=== PATIENT | female | born 1970 | race Caucasian/White ===

== ENCOUNTER 2016-11-25 20:57 | Emergency (ER) | payer OTHER ==
[~2016-11-25] VITALS: Ht 147.3 cm; Wt 71.0 kg
[~2016-11-25 20:57] MED LIST: AMO500 PO; AZIT250T94 PO; BACTDS PO; HYDR-3498 PO; MAG-19 PO; NAPR-260 PO; OMEP20CA16 PO; ONDA4TAB8 PO; RANI150T9 PO
[2016-11-25 21:40] VITALS: Ht 147.3 cm; Wt 71.0 kg
--- NOTE | 2016-11-25 22:05 | ERA ---
ER Documentation Chief Complaint Date/Time DATE: 11/25/16 TIME: 22:04 Chief Complaint chest/back pain x 2 days HPI The patient is a 46-year-old female, presenting to the ER because of sternal chest pain radiating to the back intermittently for the last 3 days, 06/11, the pain is worse with palpation. She denies similar symptoms previously. She denies fever, chills, neck pain, chest pain or exertional vomiting or diaphoresis. She denies abdominal pain, vomiting, dysuria, diarrhea. She does not smoke, drinks socially Past medical history: Dyslipidemia, GERD, gastritis Past surgical history: , tubal ligation ROS All systems reviewed and are negative except as per history of present illness. Medications Home Meds Active Scripts Ibuprofen* (Motrin*) 600 Mg Tab, 600 MG PO Q6H Y for PAIN AND OR ELEVATED TEMP, #20 TAB Prov:ZOILA KIM MD 11/26/16 Reported Medications Omeprazole* (Omeprazole*) 20 Mg Capsule., 20 MG PO DAILY, #30 CAP 11/25/16 Discontinued Scripts Amoxicillin* (Amoxicillin*) 500 Mg Cap, 500 MG PO BID for 7 Days, CAP Prov:ALEENA TORRES PA-C 08/31/16 Omeprazole* (Omeprazole*) 20 Mg Capsule., 20 MG PO BID, #60 Prov:MONIQUE SINGER NP 07/12/16 Magaldrate/Simethicone* (Mylanta*) 355 Ml Susp, 30 ML PO QID Y for GASTROINTESTINAL UPSET, #1 BOTTLE Prov:MONIQUE SINGER NP 07/12/16 Hydrocodone Bit-Acetaminophen* ([place]*) 5-325 Mg Tab, 1 TAB PO Q6 Y for PAIN, # 7 TAB Prov:JAZMINE FUNES PA-C 03/26/16 Naproxen* (Naprosyn*) 500 Mg Tablet, 500 MG PO BID Y for PAIN AND/OR INFLAMMATION, #30 TAB Prov:JAZMINE FUNES PA-C 03/26/16 Azithromycin* (Zithromax*) 250 Mg Tablet, 250 MG PO .CurryPACK DIRECTED, #6 TAB TAKE 500 MG (2 TABS) THE FIRST DAY THEN 250 MG (1 TAB) DAYS 2-5 Prov:AMELIA ZAVALETA MD 10/30/15 Ranitidine Hcl* (Zantac*) 150 Mg Tablet, 150 MG PO BID for EPIGASTRIC PAIN, #20 TAB Prov:MY HERRERA DO 06/27/15 Sulfamethoxazole-Trimethoprim* (Bactrim* DS) 800-160 Mg Tab, 1 TAB PO BID, #6 TAB Prov:MY HERRERA DO 06/27/15 Ondansetron Hcl* (Zofran*) 4 Mg Tablet, 4 MG PO Q8H Y for NAUSEA AND/OR VOMITING , #10 TAB Prov:MY HERRERA DO 06/27/15 Allergies Allergies: Coded Allergies: No Known Allergy (Unverified , 11/25/16) PMhx/Soc History of Surgery: Yes (C section) Anesthesia Reaction: No Hx Neurological Disorder: No Hx Respiratory Disorders: No Hx Cardiac Disorders: Yes (Hyperlipidemia, GERD) Hx Psychiatric Problems: No Hx Miscellaneous Medical Probl: No Hx Alcohol Use: No Hx Substance Use: No Hx Tobacco Use: No Physical Exam Vitals Vital Signs Date Time Temp Pulse Resp B/P Pulse Ox O2 Delivery O2 Flow Rate FiO2 11/26/16 02:34 75 25 120/84 100 Room Air 11/25/16 21:40 98.5 76 20 112/60 98 Physical Exam Const: No acute distress. Head: Atraumatic. Eyes: Normal Conjunctiva. ENT: Normal External Ears, Nose and Mouth. Neck: Full range of motion. No meningismus. Resp: Clear to auscultation bilaterally. Cardio: Regular rate and rhythm, no murmurs. Left chest wall tenderness with palpation Abd: Soft, non distended, normal bowel sounds, non tender. Skin: No petechiae or rashes. Back: No midline or flank tenderness. Ext: No cyanosis, or edema. Neur: Awake and alert. No focal deficit Psych: Normal Mood and Affect. Result Diagram: 11/25/16224711/25/162247 Results 24 hrs Laboratory Tests Test 11/25/16 22:48 11/26/16 01:30 Activated Partial Thromboplast Time 31.9Sec Alanine Aminotransferase (ALT/SGPT) 36IU/L Albumin 4.3g/dl Albumin/Globulin Ratio 1.16 Alkaline Phosphatase 96IU/L Anion Gap 15 Aspartate Amino Transf (AST/SGOT) 25IU/L Basophils # 0.010^3/ul Basophils % 0.4% Blood Urea Nitrogen 10mg/dl Calcium Level 9.4mg/dl Carbon Dioxide Level 29mmol/L Chloride Level 99mmol/L Creatinine 0.56mg/dl Direct Bilirubin 0.00mg/dl Eosinophils # 0.310^3/ul Eosinophils % 3.2% Globulin 3.70g/dl Glucose Level 122mg/dl Hematocrit 40.4% Hemoglobin 12.8g/dl INR International Normalized Ratio 0.88 Indirect Bilirubin 0.0mg/dl Lipase 231U/L Lymphocytes # 3.510^3/ul Lymphocytes % 34.1% Mean Corpuscular Hemoglobin 25.6pg Mean Corpuscular Hemoglobin Concent 31.7g/dl Mean Corpuscular Volume 80.8fl Mean Platelet Volume 9.8fl Monocytes # 0.610^3/ul Monocytes % 6.3% Neutrophils # 5.710^3/ul Neutrophils % 55.6% Nucleated Red Blood Cells # 0.010^3/ul Nucleated Red Blood Cells % 0.0/100WBC Platelet Count 53672^3/UL Potassium Level 4.2mmol/L Prothrombin Time 11.9Sec Prothrombin Time Ratio 0.9 Red Blood Count 5.0010^6/ul Red Cell Distribution Width 14.2% Sodium Level 139mmol/L Total Bilirubin 0.0mg/dl Total Protein 8.0g/dl Troponin I 0.012ng/ml < 0.012ng/ml White Blood Count 10.210^3/ul Current Medications Medications (Trade) Dose Ordered Sig/Nargis Route PRN Reason Start Time Stop Time Status Last Admin Dose Admin Pantoprazole 40 mg 40 mg ONCE ONCE IV 11/25/16 22:30 11/25/16 22:31 DC 11/25/16 22:50 Sodium Chloride (NS) 1,000 ml @ 1,000 mls/hr Q1H ONCE IV 11/25/16 22:30 11/25/16 23:29 DC 11/25/16 22:50 IV Flush 10 ml 10 ml STK-MED ONCE .ROUTE 11/25/16 23:48 11/25/16 23:49 DC 11/26/16 00:06 Sodium Chloride 100 ml @ ud STK-MED ONCE .ROUTE 11/25/16 23:48 11/25/16 23:49 DC 11/26/16 00:06 Iohexol (Omnipaque) 100 ml @ [facility] ONCE .ROUTE 11/25/16 23:48 11/25/16 23:49 DC 11/26/16 00:06 Procedures/MDM EKG: Read by emergency physician at 9:42 PM Rate/Rhythm: Normal Sinus Rhythm 74 beats/min QRS, ST, T-waves: No ST elevation, no T inversion Impression: Normal EKG EKG: Read by emergency physician at 11:47 PM Rate/Rhythm: Normal Sinus Rhythm beats/min QRS, ST, T-waves: No ST elevation, no T inversion Impression: EKG [place] [id number] Radiology Main Line: [phone] DIAGNOSTIC IMAGING REPORT Patient: SUJEY BAKER : 1970 Age: 46 Sex: F MR #: [id number] DOS: 11/25/16 2215 Ordering MD: ZOILA KIM MD Location: E/R Room/Bed: PROCEDURE: CTA Chest. CLINICAL INDICATION: Chest pain, rule out aortic dissection. TECHNIQUE: Direct spiral 1.25 mm axial sections were obtained from the thoracic inlet to the upper abdomen with the use of 99 cc of Omnipaque 350 nonionic intravenous contrast material. Axial MIP, coronal, and sagittal reformations were obtained. The images were reviewed on a PACS workstation. CTDIvol: 51.64, 12.70 mGy. DLP: 491.67 mGy-cm. One or more of the following dose reduction techniques were used: - Automated exposure control. - Adjustment of the mA and/or kV according to patient size. - Use of iterative reconstruction technique. COMPARISON: None. FINDINGS: There is no pulmonary embolism. The main pulmonary artery is normal in caliber. There is no aortic aneurysm. The heart is normal in size. There is no pericardial effusion. There are mild dependent atelectatic changes in the lungs. No pulmonary edema or consolidation is identified. There is no pleural effusion or pneumothorax No suspicious thyroid lesion is seen. There is no thoracic lymphadenopathy. The trachea and mainstem bronchi are patent. Limited evaluation of the upper abdomen is unremarkable. There is no suspicious osseous lesion. IMPRESSION: 1. No aortic aneurysm or dissection. 2. No pulmonary embolism. 3. No pulmonary edema or consolidation. RPTAT: HTAR .Marvin Lunsford MD, MD Date Time Electronically viewed and signed by .Marvin Lunsford MD, MD on 11/26/2016 00:26 .R/ CC: ZOILA KIM MD [place] [id number] Radiology Main Line: [phone] DIAGNOSTIC IMAGING REPORT Patient: SUJEY BAKER : 1970 Age: 46 Sex: F MR #: [id number] DOS: 11/25/16 [facility] [place] [facility] Ordering MD: ZOILA KIM MD Location: E/R Room/Bed: PROCEDURE: CHEST - 1 VIEW CLINICAL INDICATION: 46-year-old female with chest pain. TECHNIQUE: A single frontal AP semi-erect view of the chest was performed portably. The images were reviewed on a PACS workstation. COMPARISON: CT abdomen/pelvis December 11, 2014. FINDINGS: The cardiomediastinal silhouette is within normal limits. There is a shallow inspiration. There is mild bibasilar subsegmental atelectasis. There is no evidence for an infiltrate. There is no evidence for congestive heart failure. There is no evidence for pneumothorax. The osseous structures are intact. IMPRESSION: Shallow inspiration with mild bibasilar subsegmental atelectasis. .Wilbert Hill MD, MD Date Time Electronically viewed and signed by .Wilbert Hill MD, MD on 11/25/2016 23:10 .M/ CC: ZOILA KIM MD MEDICAL MAKING DECISION: The patient is a 46-year-old female, presenting with acute chest pain of unclear etiology. She was treated with Protonix 40 mg IV and 1 L normal saline for clinical dehydration with good response. Tthe differential diagnoses considered include but are not limited to acute coronary syndrome, acute myocardial infarction, pericarditis, pulmonary embolism, aortic dissection, pneumonia, pleural effusion, pneumothorax, GERD, chest wall pain. Departure Diagnosis: Primary Impression: Chest pain Condition: Good Comments She was discharged with Motrin The patient presents with chest pain and I considered pulmonary embolism, aortic dissection, pneumothorax among other diagnoses. Evaluation for acute coronary syndrome was performed. The HEART score (www.mdcalc.com) was utilized for risk stratification and found to be <= 3. Repeat EKG and troponin @ 3 hours were unchanged. Based on this evaluation the patients risk of major adverse cardiac events is <1%. Shared decision making occurred with patient and the decision has been made to discharge the patient for outpatient evaluation and functional study within 72 hours. ZOILA KIM MD Nov 25, 2016 22:05
[2016-11-25] MEDS ORDERED: OMEP20CA16 PO (22:24)
[2016-11-25] MEDS ORDERED: SOD CHLORIDE 0.9% 1,000 ML IV ONE (22:30)
[2016-11-25] MEDS ORDERED: PANTOPRAZOLE 40 MG INJ IV ONE (22:30)
[2016-11-25 23:04] LABS: ADD SCAN DIFF NO
[2016-11-25 23:09] LABS: BASOPHILS % 0.4 % (0.0-2.0); EOSINOPHILS # 0.3 10^3/ul (0.0-0.5); EOSINOPHILS % 3.2 % (0.0-7.0); HEMATOCRIT 40.4 % (37.0-47.0); HEMOGLOBIN 12.8 g/dl (12.0-16.0); LYMPHOCYTES # 3.5 10^3/ul (0.8-2.9); LYMPHOCYTES % 34.1 % (15.0-51.0); MEAN CORPUSCULAR HEMOGLOBIN 25.6 pg (29.0-33.0); MEAN CORPUSCULAR HGB CONC 31.7 g/dl (32.0-37.0); MEAN CORPUSCULAR VOLUME 80.8 fl (82.0-101.0); MEAN PLATELET VOLUME 9.8 fl (7.4-10.4); MONOCYTE # 0.6 10^3/ul (0.3-0.9); MONOCYTES % 6.3 % (0.0-11.0); NEUTROPHIL # 5.7 10^3/ul (1.6-7.5); NEUTROPHILS % 55.6 % (39.0-77.0); PLATELET COUNT 313 10^3/UL (140-415); RED CELL DISTRIBUTION WIDTH 14.2 % (11.5-14.5); WHITE BLOOD COUNT 10.2 10^3/ul (4.8-10.8)
--- NOTE | 2016-11-25 23:11 | RADRPT ---
PROCEDURE: CHEST - 1 VIEW CLINICAL INDICATION: 46-year-old female with chest pain. TECHNIQUE: A single frontal AP semi-erect view of the chest was performed portably. The images we re reviewed on a PACS workstation. COMPARISON: CT abdomen/pelvis December 11, 2014. FINDINGS: The cardiomediastinal silhouette is within normal limits. There is a shallow inspiration. There is mild bibasilar subsegmental atelectasis. There is no evidence for an infiltrate. There is no evid ence for congestive heart failure. There is no evidence for pneumothorax. The osseous structures are intact. IMPRESSION: Shallow inspiration with mild bibasilar subsegmental atelectasis. .Wilbert Hill MD, MD Date Time Electronically viewed and signed by .Wilbert Hill MD, on 11/25/2016 23:10 ./
[2016-11-25 23:17] LABS: ALBUMIN 4.3 g/dl (3.3-4.9)
[2016-11-25 23:18] LABS: INR 0.88; POTASSIUM 4.2 mmol/L (3.5-5.1); PROTIME 11.9 Sec (12.2-14.2); PT RATIO 0.9
[2016-11-25 23:20] LABS: CREATININE 0.56 mg/dl (0.44-1.00); PARTIAL THROMBOPLASTIN TIME 31.9 Sec (25.0-35.0)
[2016-11-25 23:21] LABS: CALCIUM 9.4 mg/dl (8.4-10.2)
[2016-11-25 23:32] LABS: TROPONIN-I 0.012 ng/ml (0.00-0.12)
[2016-11-25 23:38] LABS: ALBUMIN/GLOBULIN RATIO 1.16
[2016-11-25] MEDS ORDERED: SOD CHLORIDE 0.9% 100 ML ONE (23:48)
[2016-11-25] MEDS ORDERED: IOHEXOL 100 ML ONE (23:48)
--- NOTE | 2016-11-26 00:27 | RADRPT ---
PROCEDURE: CTA Chest. CLINICAL INDICATION: Chest pain, rule out aortic dissection. TECHNIQUE: Direct spiral 1.25 mm axial sections were obtained from the thoracic inlet to the upper abdomen with the use of 99 cc of Omnipaque 350 nonionic intravenous contrast material. Axial MIP, c oronal, and sagittal reformations were obtained. The images were reviewed on a PACS workstation. CTD Ivol: 51.64, 12.70 mGy. DLP: 491.67 mGy-cm. One or more of the following dose reduction techniques were used: - Automated exposure control. - Adjustment of the mA and/or kV according to patient size. - Use of iterative reconstruction technique. COMPARISON: None. FINDINGS: There is no pulmonary embolism. The main pulmonary artery is normal in caliber. There is no aortic aneurysm. The heart is normal in size. There is no pericardial effusion. There are mild dependent atelectatic changes in the lungs. No pulmonary edema or consolidation is id entified. There is no pleural effusion or pneumothorax No suspicious thyroid lesion is seen. There is no thoracic lymphadenopathy. The trachea and mainste m bronchi are patent. Limited evaluation of the upper abdomen is unremarkable. There is no suspicious osseous lesion. IMPRESSION: 1. No aortic aneurysm or dissection. 2. No pulmonary embolism. 3. No pulmonary edema or consolidation. RPTAT: HTAR .Marvin Lunsford MD, Date Time Electronically viewed and signed by .Marivn Lunsford MD, on 11/26/2016 00:26 .R/
[2016-11-26] MEDS ORDERED: IBUP-1542 PO (02:26)
[2016-11-26 02:34] VITALS: BP 120/84; PULSE 75; RESP 25
== END 2016-11-26 02:34 | disposition home or self-care (01) ==
LOC: E/R 20:57
DX: R07.89 Other chest pain (principal)
CPT/HCPCS: 36415; 71010; 71275; 80053; 83690; 84484; 85025; 85610; 85730; 96374; C9113; J7030; Q9967; Z7502; Z7610; 93005

== ENCOUNTER 2016-11-28 16:11 | Emergency (ER) | payer OTHER ==
[~2016-11-28] VITALS: Wt 77.0 kg
[~2016-11-28 16:11] MED LIST changes: -AMO500 PO; -AZIT250T94 PO; -BACTDS PO; -HYDR-3498 PO; +IBUP-1542 PO; -MAG-19 PO; -NAPR-260 PO; -ONDA4TAB8 PO; -RANI150T9 PO
[2016-11-28] MEDS ORDERED: FAMOTIDINE 20 MG TAB PO STA (18:45)
[2016-11-28] MEDS ORDERED: LIDOCAINE/MYLANTA 40 ML BTL PO STA (18:45)
[2016-11-28 19:26] LABS: ADD SCAN DIFF NO
[2016-11-28 19:30] LABS: BASOPHIL # 0.1 10^3/ul (0.0-0.1); BASOPHILS % 0.6 % (0.0-2.0); EOSINOPHILS # 0.3 10^3/ul (0.0-0.5); EOSINOPHILS % 2.9 % (0.0-7.0); HEMOGLOBIN 12.8 g/dl (12.0-16.0); LYMPHOCYTES # 3.3 10^3/ul (0.8-2.9); LYMPHOCYTES % 32.6 % (15.0-51.0); MEAN CORPUSCULAR HEMOGLOBIN 25.9 pg (29.0-33.0); MEAN PLATELET VOLUME 9.9 fl (7.4-10.4); MONOCYTE # 0.6 10^3/ul (0.3-0.9); NEUTROPHIL # 5.7 10^3/ul (1.6-7.5); NEUTROPHILS % 57.5 % (39.0-77.0); PLATELET COUNT 320 10^3/UL (140-415); RED BLOOD COUNT 4.94 10^6/ul (4.20-5.40); RED CELL DISTRIBUTION WIDTH 14.2 % (11.5-14.5)
[2016-11-28 19:40] LABS: ALBUMIN 4.3 g/dl (3.3-4.9); POTASSIUM 4.4 mmol/L (3.5-5.1)
[2016-11-28 19:42] LABS: BILIRUBIN,INDIRECT 0.2 mg/dl (0-1.1); BILIRUBIN,TOTAL 0.2 mg/dl (0.2-1.3); CREATININE 0.61 mg/dl (0.44-1.00)
[2016-11-28 19:43] LABS: ALBUMIN/GLOBULIN RATIO 1.3; CALCIUM 9.8 mg/dl (8.4-10.2); TOTAL PROTEIN 7.6 g/dl (6.1-8.1)
[2016-11-28 19:55] LABS: URINE BLOOD (Dip) POC Trace-intact (NEGATIVE)
--- NOTE | 2016-11-28 20:00 | RADRPT ---
PROCEDURE: US Abdomen Right Upper Quadrant. CLINICAL INDICATION: Abdominal pain TECHNIQUE: Multiple real-time longitudinal and transverse images were acquired of the patient's [facility] upper quadrant abdomen utilizing a curved array transducer. COMPARISON: CT scan of the abdomen and pelvis done 12/11/[address] was unremarkable except for a bladder diverticulum. FINDINGS: Liver: The liver is mildly enlarged with the sagittal diameter right lobe measuring 16.9 cm. There is mild diffusely increased echotexture with no focal lesion. There is normal directional flow in t he main portal vein. Gallbladder: Appears unremarkable and no stones are identified. There is no pericholecystic fluid. Bile ducts: There is no significant intra or extrahepatic bile duct dilatation. No choledocholiths a re seen within the visualized portions. The common bile duct measures 3.3 mm in cross diameter. Pancreas: The pancreatic head is largely obscured by bowel gas as is the distal tail. The visualize d portions are unremarkable. Right adrenal : No mass is identified. Right kidney: Normal in echotexture andl in size. The right kidney measures 10.3 cm in length. No ma ss, pathological calcification, or hydronephrosis is evident. Peritoneum: There is no free intraperitoneal fluid IMPRESSION: 1. Mild hepatomegaly with mildly diffusely increased echotexture compatible with fatty infiltration . No focal lesion is identified. 2. Pleural unremarkable gallbladder with no gallstones or gallbladder wall thickening. There is no bile duct dilatation. 3. The pancreas is partially obscured by bowel gas. 4. Normal-appearing right kidney without hydronephrosis. Physician Fidelina Date Time Electronically viewed and signed by Physician Fidelina on 11/28/2016 19:59 /
--- NOTE | 2016-11-28 20:09 | ERD ---
ER Documentation Chief Complaint Date/Time DATE: 11/28/16 TIME: 20:07 Chief Complaint ABDOMINAL PAIN WITH NAUSEA AND VOMITING SINCE 3 DAYS. NO DIARRHEA OR DYSURA HPI Patient is a 46-year-old female who presents to the ED with epigastric and right upper quadrant pain since yesterday. She states that she had a hot dog yesterday and developed pain. She does have a history of GERD and gastritis. She does not take any medication for her symptoms. She states that the pain is a burning sensation and she has a lot of gas and acid feeling in her throat. She denies nausea, vomiting or diarrhea. She denies chest pain, shortness of breath or difficulty breathing. She states that she was here 3 days ago and had a cardiac workup which was unremarkable. She denies diarrhea, fever, chills. She states that her last bowel movement was this morning. Denies history of constipation. ROS All systems reviewed and are negative except as per history of present illness. Medications Home Meds Active Scripts Nitrofurantoin Monohyd Macrocr* (Macrobid*) 100 Mg Capsr, 100 MG PO BID for 7 Days, CAP Prov:MARY LEGGETT PA-C 11/28/16 Famotidine* (Pepcid*) 20 Mg Tablet, 20 MG PO BID for 30 Days, TAB Prov:MARY LEGGETT PA-C 11/28/16 Ibuprofen* (Motrin*) 600 Mg Tab, 600 MG PO Q6H Y for PAIN AND OR ELEVATED TEMP, #20 TAB Prov:ZOILA KIM MD 11/26/16 Reported Medications Omeprazole* (Omeprazole*) 20 Mg Capsule., 20 MG PO DAILY, #30 CAP 11/25/16 Discontinued Scripts Amoxicillin* (Amoxicillin*) 500 Mg Cap, 500 MG PO BID for 7 Days, CAP Prov:ALEENA TORRES PA-C 08/31/16 Omeprazole* (Omeprazole*) 20 Mg Capsule., 20 MG PO BID, #60 Prov:MONIQUE SINGER NP 07/12/16 Magaldrate/Simethicone* (Mylanta*) 355 Ml Susp, 30 ML PO QID Y for GASTROINTESTINAL UPSET, #1 BOTTLE Prov:MONIQUE SINGER NP 07/12/16 Hydrocodone Bit-Acetaminophen* ([place]om*) 5-325 Mg Tab, 1 TAB PO Q6 Y for PAIN, # 7 TAB Prov:JAZMINE FUNES PA-C 03/26/16 Naproxen* (Naprosyn*) 500 Mg Tablet, 500 MG PO BID Y for PAIN AND/OR INFLAMMATION, #30 TAB Prov:JAZMINE FUNES PA-C 03/26/16 Azithromycin* (Zithromax*) 250 Mg Tablet, 250 MG PO .CurryPACK DIRECTED, #6 TAB TAKE 500 MG (2 TABS) THE FIRST DAY THEN 250 MG (1 TAB) DAYS 2-5 Prov:AMELIA ZAVALETA MD 10/30/15 Ranitidine Hcl* (Zantac*) 150 Mg Tablet, 150 MG PO BID for EPIGASTRIC PAIN, #20 TAB Prov:MY HERRERA DO 06/27/15 Sulfamethoxazole-Trimethoprim* (Bactrim* DS) 800-160 Mg Tab, 1 TAB PO BID, #6 TAB Prov:MY HERRERA DO 06/27/15 Ondansetron Hcl* (Zofran*) 4 Mg Tablet, 4 MG PO Q8H Y for NAUSEA AND/OR VOMITING , #10 TAB Prov:MY HERRERA DO 06/27/15 Allergies Allergies: Coded Allergies: No Known Allergy (Unverified , 11/25/16) PMhx/Soc History of Surgery: Yes (C section) Anesthesia Reaction: No Hx Neurological Disorder: No Hx Respiratory Disorders: No Hx Cardiac Disorders: Yes (Hyperlipidemia, GERD) Hx Psychiatric Problems: No Hx Miscellaneous Medical Probl: No Hx Alcohol Use: Yes Hx Substance Use: No Hx Tobacco Use: No Smoking Status: Never smoker FmHx Family History: No coronary disease, No diabetes, No other Physical Exam Vitals Vital Signs Date Time Temp Pulse Resp B/P Pulse Ox O2 Delivery O2 Flow Rate FiO2 11/28/16 21:20 98.1 71 18 120/60 95 Room Air 11/28/16 16:12 98.9 86 20 110/56 99 Physical Exam GENERAL: Well-developed, well-nourished female. Appears in no acute distress. LUNG: Clear to auscultation bilaterally. No rhonchi, wheezing, rales or coarse breath sounds. HEART: Regular rate and rhythm. No murmurs, rubs or gallops. ABDOMEN: No scars, ecchymosis or rashes noted. Soft, nontender, and nondistended. Positive bowel sounds in all four quadrants. No rebound tenderness , no guarding. (-) McBurneys point tenderness. No CVA tenderness. tenderness in epigastric and right upper quadrant. NEUROLOGIC: Alert and oriented. Moving all four extremities. 5/5 strength in all extremities. Normal speech. Steady gait. SKIN: Normal color. Warm and dry. No rashes or lesions. Capillary refill < 2 seconds Result Diagram: 11/28/16184911/28/161849 Results 24 hrs Laboratory Tests Test 11/28/16 18:50 11/28/16 19:58 11/28/16 20:36 Alanine Aminotransferase (ALT/SGPT) 25IU/L Albumin 4.3g/dl Albumin/Globulin Ratio 1.30 Alkaline Phosphatase 85IU/L Anion Gap 17 Aspartate Amino Transf (AST/SGOT) 24IU/L Basophils # 0.110^3/ul Basophils % 0.6% Blood Urea Nitrogen 12mg/dl Calcium Level 9.8mg/dl Carbon Dioxide Level 28mmol/L Chloride Level 99mmol/L Creatinine 0.61mg/dl Direct Bilirubin 0.00mg/dl Eosinophils # 0.310^3/ul Eosinophils % 2.9% Globulin 3.30g/dl Glucose Level 115mg/dl Hematocrit 40.0% Hemoglobin 12.8g/dl Indirect Bilirubin 0.2mg/dl Lipase 231U/L Lymphocytes # 3.310^3/ul Lymphocytes % 32.6% Mean Corpuscular Hemoglobin 25.9pg Mean Corpuscular Hemoglobin Concent 32.0g/dl Mean Corpuscular Volume 81.0fl Mean Platelet Volume 9.9fl Monocytes # 0.610^3/ul Monocytes % 6.0% Neutrophils # 5.710^3/ul Neutrophils % 57.5% Nucleated Red Blood Cells # 0.010^3/ul Nucleated Red Blood Cells % 0.0/100WBC Platelet Count 59627^3/UL Potassium Level 4.4mmol/L Red Blood Count 4.9410^6/ul Red Cell Distribution Width 14.2% Sodium Level 140mmol/L Total Bilirubin 0.2mg/dl Total Protein 7.6g/dl White Blood Count 10.010^3/ul Bedside Urine Blood Trace-intact Bedside Urine Glucose (UA) Negative Bedside Urine Ketones (LAB) Negative Bedside Urine Leukocyte Esterase (L Trace Bedside Urine Nitrite (LAB) Positive Bedside Urine Protein (LAB) Negative Bedside Urine pH (LAB) 6.0 Urine Bacteria MANY Urine Bilirubin NEGATIVE Urine Clarity CLEAR Urine Color LT. YELLOW Urine Glucose NEGATIVE% Urine Hemoglobin NEGATIVE Urine Ketones NEGATIVE Urine Leukocyte Esterase TRACE Urine Microscopic RBC 0-2/HPF Urine Microscopic WBC 2-5/HPF Urine Nitrite POSITIVE Urine Specific [place] 1.020 Urine Squamous Epithelial Cells RARE Urine Total Protein NEGATIVE Urine Urobilinogen 0.2 E.U./dL Urine pH 6.0 Current Medications Medications (Trade) Dose Ordered Sig/Nargis Route PRN Reason Start Time Stop Time Status Last Admin Dose Admin Famotidine (Pepcid) 20 mg ONCE STAT PO 11/28/16 18:45 11/28/16 18:49 DC 11/28/16 18:56 Miscellaneous Medication (Gi Cocktail (2)) 40 ml ONCE STAT PO 11/28/16 18:45 11/28/16 18:49 DC 11/28/16 18:57 Procedures/MDM ER COURSE: I kept the patient and/or family informed of laboratory and diagnostic imaging results throughout the emergency room course. EKG, MONITORS, & DIAGNOSTIC IMAGING: [place] [id number] Radiology Main Line: [phone] DIAGNOSTIC IMAGING REPORT Patient: SUJEY BAKER : 1970 Age: 46 Sex: F MR #: [id number] DOS: 11/28/16 1845 Ordering MD: MARY LEGGETT PA-C Location: FTE Room/Bed: PROCEDURE: US Abdomen Right Upper Quadrant. CLINICAL INDICATION: Abdominal pain TECHNIQUE: Multiple real-time longitudinal and transverse images were acquired of the patient's right upper quadrant abdomen utilizing a curved array transducer. COMPARISON: CT scan of the abdomen and pelvis done 12/11/[address] was unremarkable except for a bladder diverticulum. FINDINGS: Liver: The liver is mildly enlarged with the sagittal diameter right lobe measuring 16.9 cm. There is mild diffusely increased echotexture with no focal lesion. There is normal directional flow in the main portal vein. Gallbladder: Appears unremarkable and no stones are identified. There is no pericholecystic fluid. Bile ducts: There is no significant intra or extrahepatic bile duct dilatation. No choledocholiths are seen within the visualized portions. The common bile duct measures 3.3 mm in cross diameter. Pancreas: The pancreatic head is largely obscured by bowel gas as is the distal tail. The visualized portions are unremarkable. Right adrenal : No mass is identified. Right kidney: Normal in echotexture andl in size. The right kidney measures 10.3 cm in length. No mass, pathological calcification, or hydronephrosis is evident. Peritoneum: There is no free intraperitoneal fluid IMPRESSION: 1. Mild hepatomegaly with mildly diffusely increased echotexture compatible with fatty infiltration. No focal lesion is identified. 2. Pleural unremarkable gallbladder with no gallstones or gallbladder wall thickening. There is no bile duct dilatation. 3. The pancreas is partially obscured by bowel gas. 4. Normal-appearing right kidney without hydronephrosis. Physician Fidelina Date Time Electronically viewed and signed by Physician Fidelina on 11/28/2016 19:59 RH/ CC: MARY LEGGETT PA-C MEDICATIONS: GI cocktail, Pepcid, Zofran. Tolerated medication well and seen improvement in symptoms. LAB INTERPRETATION: CBC showed no evidence of systemic infection or severe anemia. CMP showed no evidence of electrolyte abnormalities, severe acidosis, alkalosis, renal failure , or liver disease. Lipase showed no evidence of acute pancreatitis. UA showed evidence of trace leukocytes, positive nitrates and no hematuria. Urine test was negative. MEDICAL DECISION MAKING: This is a 46-year-old who presents with epigastric pain. Vital signs were reviewed. Patient is afebrile. Patient is not hypoxic. Patient is not toxic or ill-appearing. Patient likely has GERD versus gastritis. Low suspicion for ACS , AAA, perforated ulcer, bowel obstruction, cholecystitis, choledocholithiasis, cholangitis, pancreatitis, hepatic abscess, appendicitis, diverticulitis, gastroenteritis, hepatitis, peptic ulcer disease, HELLP syndrome. Patient also has a UTI, positive nitrates in her urine. Patient is afebrile and does not have CVA tenderness. Low suspicion for pyelonephritis, septic stone, nephrolithiasis, obstructive stone. Patient was seen in the ED 3 days ago and had a cardiac workup. I have low suspicion for cardiac emergency. Her heart score is 0. I consulted with Dr. Fish regarding this patient and he agrees with plan. no further workup for patient. Patient does not have chest pain. DISCHARGE: At this time, patient is stable for discharge and outpatient management with no new complaints during the ER course. Patient was sent home with AlishadGlenn Motrin. Patient will be discharged home with instructions to recheck for new or worsening symptoms such as fever, nausea, weakness, LOC and to follow up with primary care in the next 1-2 days. Patient was advised to return to the ER for any new or worsening symptoms. Plan was discussed and patient and/or family understands and agrees. Home instructions were given. Departure Diagnosis: Primary Impression: Abdominal pain Abdominal location: epigastric Qualified Code: R10.13 - Epigastric pain Condition: Stable MARY LEGGETT PA-C Nov 28, 2016 20:09
[2016-11-28 20:44] LABS: ADD UMIC YES; URINE BILIRUBIN (Dip) NEGATIVE (NEGATIVE); URINE BLOOD (Dip) NEGATIVE (NEGATIVE); URINE COLOR LT. YELLOW (YELLOW); URINE GLUCOSE (Dip) NEGATIVE (NEGATIVE); URINE KETONES (Dip) NEGATIVE (NEGATIVE); URINE LEUKOCYTE ESTERASE (Dip) TRACE (NEGATIVE); URINE NITRITE (Dip) POSITIVE (NEGATIVE); URINE TOTAL PROTEIN (Dip) NEGATIVE (NEGATIVE); URINE UROBILINOGEN (Dip) 0.2 E.U./dL (0.1-1.0)
[2016-11-28 20:58] LABS: SQUAMOUS EPITHELIAL CELL,UR RARE; URINE RBCS 0-2 /HPF (0)
[2016-11-28 20:59] LABS: BACTERIA,URINE MANY
[2016-11-28] MEDS ORDERED: FAMO-18 PO (21:07)
[2016-11-28] MEDS ORDERED: NITR-58 PO (21:07)
[2016-11-28 21:20] VITALS: BP 120/60; PULSE 71; RESP 18; TEMP 98.1
== END 2016-11-28 21:20 | disposition home or self-care (01) ==
LOC: FTE 16:11
DX: R10.13 Epigastric pain (principal)
CPT/HCPCS: 76705; 80053; 81001; 83690; 85025; Z7502; Z7610; 81003

== ENCOUNTER 2018-03-30 22:25 | Emergency (ER) | END 2018-03-31 00:55 | disposition home or self-care (01) ==

== ENCOUNTER 2018-06-01 22:38 | Emergency (ER) | END 2018-06-02 01:05 | disposition home or self-care (01) ==